=== PATIENT | female | born 2000 | race Caucasian/White ===

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

== ENCOUNTER → 2020-04-30 | Outpatient (CLI) | payer BC ==
[~2020-04-30] MED LIST: FAMO-63 PO; IBUP800T19 PO; PRED20TA PO; TRAM50TA PO
--- NOTE | 2020-04-30 09:13 | RAD ---
EXAM: Right knee, 3 views. HISTORY: Pain. COMPARISON: None. FINDINGS: 3 views of the right knee are obtained. There is no fracture, dislocation or subluxation. There is a sclerotic lesion within the patella, the appearance of which favors a bone island. There is no joint effusion. IMPRESSION: No acute osseous finding. Electronically signed by: Vibha Zelaya MD (04/30/2020 9:11 AM) [id number]
== END ==
LOC: RAD 08:45
PROVIDERS: ATTEND Physician Assistant
DX: M25.561 Pain in right knee (principal)
CPT/HCPCS: 73562

== ENCOUNTER 2020-06-10 13:10 | Emergency (ER) | payer BC ==
[~2020-06-10] VITALS: Ht 157.5 cm; Wt 66.0 kg
[~2020-06-10 13:10] MED LIST changes: -FAMO-63 PO; -PRED20TA PO
[2020-06-10] MEDS ORDERED: methylPREDNISolone SOD SUCC PF 125 MG/2 ML VIAL. IV ONE (13:30)
[2020-06-10] MEDS ORDERED: diphenhydrAMINE 50 MG/ML VIAL IVP ONE (13:30)
[2020-06-10] MEDS ORDERED: FAMOTIDINE 20 MG/2 ML VIAL IVP ONE (13:30)
[2020-06-10] MEDS ORDERED: IV NORMAL SALINE 1,000ML 1,000 ML IV ONE (13:30)
[2020-06-10] MEDS ORDERED: RACEPINEPHRINE 2.25% 0.5 ML NEBU. NEB ONE (13:30)
--- NOTE | 2020-06-10 13:32 | PHYS DOC ---
Past History Past Medical History: Other Past Surgical History: No Surgical History Smoking: Non-smoker Alcohol Use: None Drug Use: None General Adult EDM: Chief Complaint: ALLERGIC REACTION HPI: HPI: Patient is a 19-year-old female who presented to ER today for evaluation of trouble breathing started about 45 minutes ago. Patient says she was walking outside when this happened. Patient says she got bitten by multiple mosquitoes last night on her lower extremity, having itchy and swelling. Patient denies any chest pain, no cough, no fever. Review of Systems: Review of Systems: Constitutional: Denies fever or chills Eyes: Denies change in visual acuity HENT: Denies nasal congestion or sore throat Respiratory: Denies cough , positive for shortness of breath Cardiovascular: Denies chest pain or edema GI: Denies abdominal pain, nausea, vomiting, bloody stools or diarrhea : Denies dysuria Musculoskeletal: Denies back pain or joint pain Integument: positive for rash on extremity. Neurologic: Denies headache, focal weakness or sensory changes Endocrine: Denies polyuria or polydipsia Lymphatic: Denies swollen glands Psychiatric: Denies depression or anxiety Heart Score: Risk Factors: Risk Factors: DM, Current or recent (<one month) smoker, HTN, HLP, family history of CAD, obesity. Risk Scores: Score 0 - 3: 2.5% MACE over next 6 weeks - Discharge Home Score 4 - 6: 20.3% MACE over next 6 weeks - Admit for Clinical Observation Score 7 - 10: 72.7% MACE over next 6 weeks - Early Invasive Strategies Current Medications: Current Meds: Current Medications Medications (Trade) Dose Ordered Sig/Kristyn Start Time Stop Time Status Last Admin Dose Admin Diphenhydramine HCl (Benadryl) 25 mg 1X ONCE 06/10/20 13:30 06/10/20 13:31 Epinephrine (S2 Racepinephrine) 0.5 ml 1X ONCE 06/10/20 13:30 06/10/20 13:31 Famotidine (Pepcid Vial) 20 mg 1X ONCE 06/10/20 13:30 06/10/20 13:31 Methylprednisolone Sodium Succinate (SOLU-Medrol 125MG VIAL) 125 mg 1X ONCE 06/10/20 13:30 06/10/20 13:31 Sodium Chloride 1,000 ml @ 1,000 mls/hr 1X ONCE 06/10/20 13:30 06/10/20 14:29 Allergies: Allergies: Allergies Coded Allergies Type Severity Reaction Last Updated Verified methylphenidate Allergy Unknown 04/30/18 Yes Physical Exam: PE: Constitutional: Well developed, well nourished, no acute distress, non-toxic appearance. HENT: Normocephalic, atraumatic, bilateral external ears normal, oropharynx moist, no oral exudates, nose normal. Eyes: PERRLA, EOMI, conjunctiva normal, no discharge. Neck: Normal range of motion, no tenderness, supple, no stridor. Cardiovascular: sinus tachycardia, regular rhythm, no murmur Lungs & Thorax: Bilateral breath with wheezing auscultation Abdomen: Bowel sounds normal, soft, no tenderness, no masses, no pulsatile masses. Skin: Warm, dry, macular rash on right leg. Back: No tenderness, no CVA tenderness. Extremities: No tenderness, no cyanosis, no clubbing, ROM intact, no edema. Neurologic: Alert and oriented X 3, normal motor function, normal sensory function, no focal deficits noted. Psychologic: Affect normal, judgement normal, mood normal. Current Patient Data: Vital Signs: Current Medications Medications (Trade) Dose Ordered Sig/Kristyn Route PRN Reason Start Time Stop Time Status Last Admin Dose Admin Epinephrine (S2 Racepinephrine) 0.5 ml 1X ONCE NEB 06/10/20 13:30 06/10/20 13:31 DC 06/10/20 13:32 Methylprednisolone Sodium Succinate (SOLU-Medrol 125MG VIAL) 125 mg 1X ONCE IV 06/10/20 13:30 06/10/20 13:31 DC 06/10/20 13:37 Diphenhydramine HCl (Benadryl) 25 mg 1X ONCE IVP 06/10/20 13:30 06/10/20 13:31 DC 06/10/20 13:35 Famotidine (Pepcid Vial) 20 mg 1X ONCE IVP 06/10/20 13:30 06/10/20 13:31 DC 06/10/20 13:36 Sodium Chloride 1,000 ml @ 1,000 mls/hr 1X ONCE IV 06/10/20 13:30 06/10/20 14:29 DC 06/10/20 13:33 EKG: EKG: [] Radiology/Procedures: Radiology/Procedures: [] Course & Med Decision Making: Course & Med Decision Making Pertinent Labs and Imaging studies reviewed. (See chart for details) Patient is a 19-year-old female who was evaluated in ER due to allergic reaction. Patient was given medication, she feels much better. Her breathing was clear to auscultation, no respiratory distress. Patient WILL be discharged home. Dragon Disclaimer: Dragon Disclaimer: This electronic medical record was generated, in whole or in part, using a voice recognition dictation system. Departure Departure: Impression: Primary Impression: Acute allergic reaction Disposition: HOME/RESIDENCE PRIOR TO ADM Condition: IMPROVED Referrals: NOE GUADARRAMA (PCP) PLEASE FOLLOW UP WITH YOUR DOCTOR NEEDED Patient Instructions: Allergies, Generic Additional Instructions: Thank you for visiting our Emergency Department. We appreciate you trusting us with your care. If any additional problems come up don't hesitate to return to visit us. Please follow up with your primary care provider so they can plan additional care if needed and know about the problem that you had. If symptoms worsen come back to the Emergency Department. Any concerning symptoms that start such as chest pain, shortness of air, weakness or numbness on one side of the body, running high fevers or any other concerning symptoms return to the ER. Scripts Famotidine (PEPCID) 20 Mg Tablet 1 TAB PO DAILY for ALLERGY, #5 TAB 3 Refills Prov: ERICK PANIAGUA DO 06/10/20 Prednisone (PREDNISONE) 20 Mg Tablet 2 TAB PO DAILY for ALLERGY for 5 Days, #10 TAB Prov: ERICK PANIAGUA DO 06/10/20 Justification of Admission: Justification of Admission: Justification of Admission Dx: N/A ERICK PANIAGUA DO Jun 10, 2020 13:32
[2020-06-10 14:15] VITALS: BP 12/63
[2020-06-10] MEDS ORDERED: PRED20TA PO (15:04)
[2020-06-10] MEDS ORDERED: FAMO-63 PO (15:04)
== END 2020-06-10 15:10 | disposition home or self-care (01) ==
LOC: ER 13:10
DX: T78.40XA Allergy, unspecified, initial encounter (principal); R21 Rash and other nonspecific skin eruption; Z88.8 Allergy status to other drugs, medicaments and biological substances; X58.XXXA Exposure to other specified factors, initial encounter
CPT/HCPCS: 94640; 96361; 96374; 96375; 99284; J1200; J2930; J3490; J7030

== ENCOUNTER → 2021-01-02 | Outpatient (CLI) | payer BC ==
[~2021-01-02] MED LIST changes: +FAMO-63 PO; +PRED20TA PO
--- NOTE | 2021-01-02 11:30 | RAD ---
EXAM: Right wrist, 3 views. HISTORY: Fall. COMPARISON: None. FINDINGS: 3 views of the right wrist are obtained. 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 T here is faint lucency traversing the distal radial metaphysis which is likely developmental. No displ aced fracture is seen. 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 2. Faint lucency involving the distal radius which is likely developmental. No convincing trabecular disruption is seen to suggest a nondisplaced fracture. Short-term radiographic follow-up is recommend ed in approximately one week is there is concern for a radiographically occult fracture. Electronically signed by: Vibha Zelaya MD (01/02/2021 11:28 AM) [id number]
== END ==
LOC: PMG 10:16
PROVIDERS: ATTEND Physician Assistant Medical
DX: M21.832 Other specified acquired deformities of left forearm (principal)
CPT/HCPCS: 73110